=== PATIENT | female | born 1965 | race Caucasian/White ===

== ENCOUNTER 2024-12-10 20:52 | Emergency (ER) | payer SELFPAY ==
[~2024-12-10] VITALS: Ht 167.6 cm; Wt 106.0 kg
[2024-12-10 21:03] VITALS: O2SAT 99
[2024-12-10] MEDS: SODIUM CHLORIDE 0.9% 500 ML IV ONE (21:45)
[2024-12-10] MEDS: KETOROLAC 15MG/ML VIAL IV ONE (23:09)
[2024-12-11 00:21] LABS: BASOPHILS % 0.3 % (0.0-2.0); EOSINOPHILS % 0.3 % (0.0-5.0); HEMATOCRIT. 36.2 % (36.0-48.0); HEMOGLOBIN. 12.1 g/dL (12.0-16.0); LYMPHOCYTES % 7.1 % (20.0-50.0); MEAN PLATELET VOLUME 8.0 fl (7.4-10.4); MONOCYTES % 6.7 % (2.0-8.0); NEUTROPHILS % 85.6 % (40.0-76.0); PLATELET 247 x1000/uL (130-400); RED BLOOD CELL COUNT 4.37 mill/uL (4.2-5.4); RED CELL DISTRIBUTION WIDTH 13.7 % (11.6-14.6)
[2024-12-11 00:36] LABS: INR 1.1
[2024-12-11 00:48] LABS: CREATININE 0.9 mg/dL (0.6-1.0); UREA NITROGEN BLOOD 9 mg/dL (9-23)
[2024-12-11 00:49] LABS: ETHANOL BLOOD < 10 mg/dL (<10); TROPONIN I HIGH SENSITIVITY < 4 ng/L (3.0-34)
[2024-12-11] MEDS: SODIUM CHLORIDE 0.9% 1,000 ML IV ONE (00:52)
[2024-12-11] MEDS: KETOROLAC 15MG/ML VIAL IV ONE (00:52)
[2024-12-11] MEDS: HYDRALAZINE 20MG/ML VIAL IV NR (00:52)
[2024-12-11 01:23] LABS: HCG SCREEN NEGATIVE
[2024-12-11 02:18] LABS: *AMPHETAMINES SCREEN URINE NEGATIVE (NEGATIVE); *BARBITURATES SCREEN URINE NEGATIVE (NEGATIVE); *BENZODIAZEPINES SCREEN URINE NEGATIVE (NEGATIVE); *COCAINE SCREEN URINE NEGATIVE (NEGATIVE); CANNABINOID URINE SCREEN NEGATIVE (NEGATIVE); ECSTASY MDMA SCREEN URINE NEGATIVE (NEGATIVE); METHADONE URINE SCREEN NEGATIVE (NEGATIVE); OPIATES URINE SCREEN NEGATIVE (NEGATIVE); PHENCYCLIDINE URINE SCREEN NEGATIVE (NEGATIVE)
[2024-12-11] MEDS: METOCLOPRAMIDE HCL 10MG/2ML VIAL IV ONE (02:55)
[2024-12-11] MEDS: DIPHENHYDRAMINE 50MG/ML VIAL IV ONE (02:55)
[2024-12-11] MEDS: ACETAMINOPHEN 325MG TABLET PO ONE (02:55)
[2024-12-11] MEDS ORDERED: ACETAMINOPHEN 650MG/20.3ML UDC PO PRN (03:30)
[2024-12-11] MEDS ORDERED: AZITHROMYCIN 500MG/250ML 250 ML IV SCH (04:00)
[2024-12-11 05:54] LABS: BASOPHILS % 0.2 % (0.0-2.0); EOSINOPHILS % 0.1 % (0.0-5.0); HEMATOCRIT. 37.0 % (36.0-48.0); HEMOGLOBIN. 12.4 g/dL (12.0-16.0); LYMPHOCYTES % 9.4 % (20.0-50.0); MEAN PLATELET VOLUME 7.8 fl (7.4-10.4); MONOCYTES % 6.2 % (2.0-8.0); NEUTROPHILS % 84.1 % (40.0-76.0); PLATELET 272 x1000/uL (130-400); RED BLOOD CELL COUNT 4.50 mill/uL (4.2-5.4); RED CELL DISTRIBUTION WIDTH 14.1 % (11.6-14.6)
[2024-12-11] MEDS: AZITHROMYCIN 500MG/250ML 250 ML IV SCH (06:07)
[2024-12-11 06:19] LABS: CREATININE 0.9 mg/dL (0.6-1.0); UREA NITROGEN BLOOD 7 mg/dL (9-23)
[2024-12-11 07:30] VITALS: BP 165/83; PULSE 115; RESP 24; TEMP 37.4; O2SAT 98
[2024-12-11] MEDS ORDERED: ENOXAPARIN 30MG/0.3ML SYR SUBCUT SCH (09:00)
== END 2024-12-11 07:34 | disposition left against medical advice (07) ==
LOC: EDBD 20:52 → ER 20:52 → EDBEDREQ 12-11 03:30 → EDBEDREQTM 12-11 03:30 → ER 12-11 07:34 → CMPBEDREQ 12-11 19:27
DX: U07.1 COVID-19 (principal); I10 Essential (primary) hypertension; E11.9 Type 2 diabetes mellitus without complications; Z79.899 Other long term (current) drug therapy; Z86.73 Personal history of transient ischemic attack (TIA), and cerebral infarction without residual deficits; Z79.01 Long term (current) use of anticoagulants
CPT/HCPCS: 80048 ×2; 80320; 84703; 83605 ×2; 85025 ×2; 85379; 85610; 85730; 87040; 84484; 36415 ×2; 71045; 93005; 96361 ×2; 96375 ×2; 99285; 87426; 80305; 82550; 87086; 84145; 96365; 96376; J1885 ×2; J7040; Z7610; J0456; J1200; J0360; J2765; G0480